=== PATIENT | female | born 1935 | race Caucasian/White ===

== ENCOUNTER 2021-04-08 15:29 | Inpatient (IN) ==
[2021-04-08] MEDS ORDERED: NITROGLYCERIN SL 0.4 MG TABLET SL PRN (16:22)
[2021-04-08] MEDS ORDERED: ASPIRIN 325 MG TABLET PO STA (16:22)
[2021-04-08 16:57] LABS: Basophils # 0.1 10*3/uL (0.0-0.2); Basophils % 0.9 % (0.0-0.8); Eosinophils # 0.2 10*3/uL (0.0-0.87); Eosinophils % 3.1 % (0.00-10.9); Hematocrit 41.1 VOL% (35.7-47.0); Hemoglobin 13.5 GM/DL (12.0-16.0); Immature Granulocytes % 0.2 %; Immature Granulocytes Absolute 0.01 #; Lymphocytes # 1.4 10*3/uL (1.4-4.0); Mean Corpuscular HGB Conc 32.8 GM/DL (32-36); Mean Corpuscular Volume 96.7 FL (87-102); Mean Platelet Volume 9.8 FL (9.6-12.0); Monocytes % 11.3 % (1.7-12.7); Neutrophils % 62.5 % (38.7-73.9); Platelet Count 231 T/CUMM (130-400); Red Blood Count 4.25 MC/CUMM (3.8-5.5); Red Cell Distribution Width 13.9 % (9.3-17.3); White Blood Count 6.5 T/CUMM (4-12)
[2021-04-08 17:18] LABS: Alanine Aminotransferase 31 U/L (13-56); Albumin 3.3 G/DL (3.4-5.0); Alkaline Phosphatase 55 U/L (45-117); Aspartate Amino Transferase 27 U/L (0-37); Bilirubin,Total < 0.39 MG/DL (0.20-1.00); Blood Urea Nitrogen 21 MG/DL (7-18); Calcium 8.6 MG/DL (8.5-10.1); Carbon Dioxide 29 MMOL/L (21-32); Estimated Glom Filtration Rate 42 ML/MIN; Glucose 111 MG/DL (74-106); Osmolality,Calculated 284.3 MOS/KG (273-304); Potassium 4.2 MMOL/L (3.5-5.1); Sodium 141 MMOL/L (136-145); Total Protein 6.4 G/DL (6.4-8.2)
[2021-04-08] MEDS ORDERED: ACETAMINOPHEN 325 MG TABLET PO PRN (19:02)
[2021-04-08] MEDS ORDERED: GLUCAGON 1 MG VIAL IM PRN (19:02)
[2021-04-08] MEDS ORDERED: ONDANSETRON 4 MG/2 ML VIAL IV PRN (19:02)
[2021-04-08] MEDS ORDERED: hydrALAZINE 20 MG/1 ML VIAL IV PRN (19:02)
[2021-04-08] MEDS ORDERED: DOCUSATE SODIUM 100 MG CAPSULE PO PRN (19:02)
[2021-04-08] MEDS ORDERED: DEXTROSE 50% 25 GM/50 ML VIAL IV PRN (19:02)
[2021-04-08] MEDS ORDERED: ENOXAPARIN 40 MG/0.4 ML SYRINGE SUBCUT SCH (19:30)
[2021-04-08 19:35] LABS: Thyroid Stimulating Hormone 2.44 uIU/ml (0.358-3.74)
[2021-04-08] MEDS ORDERED: lisinopriL 10 MG TABLET PO SCH (21:00)
[2021-04-08] MEDS: SODIUM CHLORIDE 0.9% 1,000 ML IV SCH (21:21)
[2021-04-08] MEDS: CALCIUM (CARBONATE)/VITAMIN D 600 MG-400 UNIT TABLET PO SCH (21:21)
[2021-04-08] MEDS: GABAPENTIN 300 MG CAPSULE PO SCH (21:21)
[2021-04-08] MEDS: OMEGA DHA EPA FISH OIL PO SCH (21:22)
[2021-04-08] MEDS: [UNRECOGNIZED DRUG - OTHER] PO SCH (21:22)
[2021-04-08] MEDS: PROPAFENONE 225 MG PO SCH (21:23)
[2021-04-08] MEDS: [UNRECOGNIZED DRUG - OTHER] PO SCH (21:23)
[2021-04-09 05:50] LABS: Basophils # 0.1 10*3/uL (0.0-0.2); Basophils % 1.2 % (0.0-0.8); Eosinophils # 0.3 10*3/uL (0.0-0.87); Eosinophils % 4.6 % (0.00-10.9); Hematocrit 39.1 VOL% (35.7-47.0); Hemoglobin 13.2 GM/DL (12.0-16.0); Immature Granulocytes % 0.2 %; Immature Granulocytes Absolute 0.01 #; Lymphocytes # 1.8 10*3/uL (1.4-4.0); Lymphocytes % 32.3 % (21.3-54.2); Mean Corpuscular HGB Conc 33.8 GM/DL (32-36); Mean Corpuscular Volume 95.8 FL (87-102); Mean Platelet Volume 9.9 FL (9.6-12.0); Monocytes % 10.8 % (1.7-12.7); Neutrophils % 50.9 % (38.7-73.9); Platelet Count 207 T/CUMM (130-400); Red Blood Count 4.08 MC/CUMM (3.8-5.5); Red Cell Distribution Width 13.6 % (9.3-17.3); White Blood Count 5.7 T/CUMM (4-12)
[2021-04-09] MEDS: LEVOTHYROXINE 50 MCG TABLET PO SCH (05:58)
[2021-04-09 06:16] LABS: Bilirubin,Urine Negative (Negative); Blood, Urine Negative (Negative); Glucose,Urine (UA) Negative (Negative); Ketones,Urine Negative (Negative); Mucus,Urine Occasional /LPF (Occasional); Nitrite,Urine Negative (Negative); Protein,Urine Negative; RBC,Urine 1 /HPF (0-4); Squamous Epithelial Cell,Urine Occasional /HPF (0-10); Urine Appearance CLEAR (Clear); Urine Color Yellow (Yellow); Urine Urobilinogen < 2.0 EU/DL (0.2-1.0)
[2021-04-09 06:41] LABS: Calcium 8.6 MG/DL (8.5-10.1); Potassium 3.6 MMOL/L (3.5-5.1); Risk Ratio 2.03; Total Protein 5.9 G/DL (6.4-8.2)
[2021-04-09] MEDS ORDERED: MAGNESIUM SULF RIDER 2 GM/50 ML PREMIX IV PRN (07:54)
[2021-04-09] MEDS ORDERED: diphenhydrAMINE CAP 25 MG CAPSULE PO ONE (07:54)
[2021-04-09] MEDS ORDERED: DIAZEPAM 5 MG TABLET PO ONE (07:54)
[2021-04-09] MEDS ORDERED: POTASSIUM CHLORIDE RIDER 10 MEQ/100 ML PREMIX IV PRN (07:54)
[2021-04-09] MEDS ORDERED: lisinopriL 20 MG TABLET PO SCH (09:00)
[2021-04-09] MEDS: ASCORBIC ACID 500 MG TABLET PO SCH (09:03)
[2021-04-09] MEDS: GABAPENTIN 300 MG CAPSULE PO SCH ×2 (09:03→21:46)
[2021-04-09] MEDS: PANTOPRAZOLE 40 MG TABLET PO SCH (09:03)
[2021-04-09] MEDS: MULTIVITAMIN (BEROCCA) TABLET PO SCH (09:03)
[2021-04-09] MEDS: CALCIUM (CARBONATE)/VITAMIN D 600 MG-400 UNIT TABLET PO SCH ×2 (09:03→21:47)
[2021-04-09] MEDS: ASPIRIN EC 81 MG TABLET PO SCH (09:03)
[2021-04-09] MEDS: MAGNESIUM OXIDE 400 MG TABLET PO SCH ×2 (09:03→17:40)
[2021-04-09] MEDS: LETROZOLE 2.5 MG TABLET PO SCH (09:04)
[2021-04-09] MEDS: PROPAFENONE 225 MG PO SCH ×3 (09:58→21:48)
[2021-04-09] MEDS: SODIUM CHLORIDE 0.9% 1,000 ML IV SCH (09:58)
[2021-04-09] MEDS: [UNRECOGNIZED DRUG - OTHER] PO SCH ×3 (09:58→21:48)
[2021-04-09] MEDS: [UNRECOGNIZED DRUG - OTHER] PO SCH ×2 (09:58→17:45)
[2021-04-09] MEDS: OMEGA DHA EPA FISH OIL PO SCH ×2 (09:58→17:45)
[2021-04-09] MEDS ORDERED: LIDOCAINE 1%/EPI INJ 20 ML VIAL ONE (14:43)
[2021-04-09] MEDS ORDERED: HEPARIN/NACL 0.9% 2 UNITS/ML 2,000 UNIT/1,000 ML BAG IV ONE (14:43)
[2021-04-09] MEDS ORDERED: MIDAZOLAM 2 MG/2 ML VIAL ONE (15:04)
[2021-04-09] MEDS ORDERED: fentaNYL 100 MCG/2 ML VIAL ONE (15:04)
[2021-04-09] MEDS: ATORVASTATIN 80 MG TABLET PO SCH (17:40)
[2021-04-09] MEDS: METOPROLOL SUCCINATE XL 25 MG TABLET PO SCH (17:41)
[2021-04-09] MEDS ORDERED: MONTELUKAST 10 MG TABLET PO SCH (19:00)
[2021-04-09] MEDS: MONTELUKAST 10 MG TABLET PO SCH (21:47)
[2021-04-10] MEDS: OMEGA DHA EPA FISH OIL PO SCH ×4 (03:16→23:54)
[2021-04-10] MEDS: SODIUM CHLORIDE 0.9% 1,000 ML IV SCH ×3 (03:16→23:53)
[2021-04-10] MEDS: [UNRECOGNIZED DRUG - OTHER] PO SCH ×4 (03:16→23:54)
[2021-04-10 05:27] LABS: Basophils # 0.1 10*3/uL (0.0-0.2); Basophils % 0.9 % (0.0-0.8); Eosinophils # 0.2 10*3/uL (0.0-0.87); Eosinophils % 3.7 % (0.00-10.9); Hematocrit 39.3 VOL% (35.7-47.0); Hemoglobin 12.9 GM/DL (12.0-16.0); Immature Granulocytes % 0.3 %; Immature Granulocytes Absolute 0.02 #; Lymphocytes # 1.4 10*3/uL (1.4-4.0); Lymphocytes % 22.1 % (21.3-54.2); Mean Corpuscular HGB Conc 32.8 GM/DL (32-36); Mean Corpuscular Volume 97.8 FL (87-102); Mean Platelet Volume 10.1 FL (9.6-12.0); Monocytes % 12.8 % (1.7-12.7); Neutrophils % 60.2 % (38.7-73.9); Platelet Count 187 T/CUMM (130-400); Red Blood Count 4.02 MC/CUMM (3.8-5.5); Red Cell Distribution Width 13.5 % (9.3-17.3); White Blood Count 6.5 T/CUMM (4-12)
[2021-04-10 06:08] LABS: Potassium 3.7 MMOL/L (3.5-5.1)
[2021-04-10] MEDS: LEVOTHYROXINE 50 MCG TABLET PO SCH (06:10)
[2021-04-10 06:11] LABS: Calcium 8.3 MG/DL (8.5-10.1)
[2021-04-10 06:12] LABS: Osmolality,Calculated 278.4 MOS/KG (273-304)
[2021-04-10] MEDS: MULTIVITAMIN (BEROCCA) TABLET PO SCH (08:58)
[2021-04-10] MEDS: LETROZOLE 2.5 MG TABLET PO SCH (08:58)
[2021-04-10] MEDS: MAGNESIUM OXIDE 400 MG TABLET PO SCH ×2 (08:58→17:02)
[2021-04-10] MEDS: ASPIRIN EC 81 MG TABLET PO SCH (08:58)
[2021-04-10] MEDS: CALCIUM (CARBONATE)/VITAMIN D 600 MG-400 UNIT TABLET PO SCH ×2 (08:58→23:50)
[2021-04-10] MEDS: ASCORBIC ACID 500 MG TABLET PO SCH (08:59)
[2021-04-10] MEDS: GABAPENTIN 300 MG CAPSULE PO SCH ×2 (08:59→23:49)
[2021-04-10] MEDS: PANTOPRAZOLE 40 MG TABLET PO SCH (08:59)
[2021-04-10] MEDS: [UNRECOGNIZED DRUG - OTHER] PO SCH ×3 (09:00→23:50)
[2021-04-10] MEDS: PROPAFENONE 225 MG PO SCH ×3 (09:00→23:50)
[2021-04-10] MEDS: CLOPIDOGREL 75 MG TABLET PO SCH (12:45)
[2021-04-10] MEDS: ATORVASTATIN 80 MG TABLET PO SCH (17:02)
[2021-04-10] MEDS: METOPROLOL SUCCINATE XL 25 MG TABLET PO SCH (17:02)
[2021-04-10] MEDS: APIXABAN 2.5 MG TABLET PO SCH (23:49)
[2021-04-10] MEDS: MONTELUKAST 10 MG TABLET PO SCH (23:49)
[2021-04-11 05:20] LABS: Basophils % 0.7 % (0.0-0.8); Eosinophils # 0.2 10*3/uL (0.0-0.87); Eosinophils % 4.1 % (0.00-10.9); Hematocrit 38.6 VOL% (35.7-47.0); Hemoglobin 12.7 GM/DL (12.0-16.0); Immature Granulocytes % 0.5 %; Immature Granulocytes Absolute 0.03 #; Lymphocytes # 1.7 10*3/uL (1.4-4.0); Lymphocytes % 28.8 % (21.3-54.2); Mean Corpuscular HGB Conc 32.9 GM/DL (32-36); Mean Corpuscular Volume 95.8 FL (87-102); Mean Platelet Volume 9.5 FL (9.6-12.0); Monocytes % 11.3 % (1.7-12.7); Neutrophils % 54.6 % (38.7-73.9); Platelet Count 200 T/CUMM (130-400); Red Blood Count 4.03 MC/CUMM (3.8-5.5); Red Cell Distribution Width 13.3 % (9.3-17.3); White Blood Count 5.9 T/CUMM (4-12)
[2021-04-11 05:48] LABS: Calcium 8.3 MG/DL (8.5-10.1); Osmolality,Calculated 283.1 MOS/KG (273-304); Potassium 3.3 MMOL/L (3.5-5.1)
[2021-04-11] MEDS: LEVOTHYROXINE 50 MCG TABLET PO SCH (06:07)
[2021-04-11 07:57] VITALS: BP 130/64
[2021-04-11] MEDS ORDERED: POTASSIUM CHLORIDE 20 MEQ TABLET PO ONE (08:02)
[2021-04-11] MEDS: LETROZOLE 2.5 MG TABLET PO SCH (08:31)
[2021-04-11] MEDS: GABAPENTIN 300 MG CAPSULE PO SCH (08:31)
[2021-04-11] MEDS: MAGNESIUM OXIDE 400 MG TABLET PO SCH (08:31)
[2021-04-11] MEDS: CLOPIDOGREL 75 MG TABLET PO SCH (08:32)
[2021-04-11] MEDS: PANTOPRAZOLE 40 MG TABLET PO SCH (08:32)
[2021-04-11] MEDS: APIXABAN 2.5 MG TABLET PO SCH (08:32)
[2021-04-11] MEDS: ASCORBIC ACID 500 MG TABLET PO SCH (08:32)
[2021-04-11] MEDS: CALCIUM (CARBONATE)/VITAMIN D 600 MG-400 UNIT TABLET PO SCH (08:32)
[2021-04-11] MEDS: MULTIVITAMIN (BEROCCA) TABLET PO SCH (08:32)
[2021-04-11] MEDS: PROPAFENONE 225 MG PO SCH (08:33)
[2021-04-11] MEDS: [UNRECOGNIZED DRUG - OTHER] PO SCH (08:33)
[2021-04-11] MEDS: OMEGA DHA EPA FISH OIL PO SCH (08:34)
[2021-04-11] MEDS: [UNRECOGNIZED DRUG - OTHER] PO SCH (08:34)
[2021-04-12] MEDS ORDERED: POTASSIUM CHLORIDE 20 MEQ TABLET PO SCH (09:00)
== END 2021-04-11 12:36 | disposition home or self-care (01) | DRG 281 ==
LOC: N.EDINP 15:29 → N.ED 15:29 → N.EDINP 20:42 → N.TELEN 20:55 → SUATTDRO 04-09 14:56
PROVIDERS: ADMIT Internal Medicine; ATTEND Emergency Medicine
PROC: CLCCHCL (ICD-10-PCS; 2021-04-09 15:15)

== ENCOUNTER 2021-08-10 14:29 | Inpatient (IN) ==
[2021-08-10 17:34] LABS: Basophils % 0.5 % (0.0-0.8); Eosinophils # 0.1 10*3/uL (0.0-0.87); Eosinophils % 1.4 % (0.00-10.9); Hematocrit 39.3 VOL% (35.7-47.0); Hemoglobin 13.1 GM/DL (12.0-16.0); Immature Granulocytes % 0.3 %; Immature Granulocytes Absolute 0.02 #; Lymphocytes # 1.7 10*3/uL (1.4-4.0); Lymphocytes % 21.8 % (21.3-54.2); Mean Corpuscular HGB Conc 33.3 GM/DL (32-36); Mean Corpuscular Volume 93.8 FL (87-102); Mean Platelet Volume 9.9 FL (9.6-12.0); Platelet Count 195 T/CUMM (130-400); Red Blood Count 4.19 MC/CUMM (3.8-5.5); Red Cell Distribution Width 13.7 % (9.3-17.3); White Blood Count 7.6 T/CUMM (4-12)
[2021-08-10 18:06] LABS: Albumin 3.3 G/DL (3.4-5.0); Bilirubin,Total 0.4 MG/DL (0.20-1.00); Calcium 8.8 MG/DL (8.5-10.1); Osmolality,Calculated 278.8 MOS/KG (273-304); Potassium 4.3 MMOL/L (3.5-5.1); Total Protein 6.3 G/DL (6.4-8.2)
[2021-08-10] MEDS ORDERED: DEXTROSE 50% 25 GM/50 ML SYRINGE IV PRN (19:37)
[2021-08-10] MEDS ORDERED: GLUCAGON 1 MG VIAL IM PRN (19:37)
[2021-08-10] MEDS ORDERED: MORPHINE 2 MG/1 ML SYRINGE IV PRN (19:37)
[2021-08-10] MEDS ORDERED: HEPARIN DRIP 25,000 UNITS/500 ML PREMIX IV SCH (20:00)
[2021-08-10 20:46] LABS: PT Patient Result 11.1 SECS (10.5-12.0); Partial Thromboplastin Time 25.2 SECS (23.8-32.1)
[2021-08-10] MEDS: METOPROLOL TARTRATE 25 MG TABLET PO SCH (21:05)
[2021-08-10] MEDS: [UNRECOGNIZED DRUG - OTHER] PO SCH (21:54)
[2021-08-10] MEDS: PROPAFENONE 225 MG PO SCH (21:54)
[2021-08-11 04:28] LABS: Basophils # 0.1 10*3/uL (0.0-0.2); Basophils % 0.7 % (0.0-0.8); Eosinophils # 0.2 10*3/uL (0.0-0.87); Eosinophils % 2.7 % (0.00-10.9); Hematocrit 38.8 VOL% (35.7-47.0); Hemoglobin 12.7 GM/DL (12.0-16.0); Immature Granulocytes % 0.1 %; Immature Granulocytes Absolute 0.01 #; Lymphocytes # 2.3 10*3/uL (1.4-4.0); Lymphocytes % 34.1 % (21.3-54.2); Mean Corpuscular HGB Conc 32.7 GM/DL (32-36); Mean Corpuscular Volume 94.6 FL (87-102); Mean Platelet Volume 10.1 FL (9.6-12.0); Monocytes % 11.4 % (1.7-12.7); Platelet Count 172 T/CUMM (130-400); Red Cell Distribution Width 13.7 % (9.3-17.3); White Blood Count 6.8 T/CUMM (4-12)
[2021-08-11 04:39] LABS: PT Patient Result 11.4 SECS (10.5-12.0); Partial Thromboplastin Time 62.9 SECS (23.8-32.1)
[2021-08-11 05:04] LABS: Calcium 8.8 MG/DL (8.5-10.1); Osmolality,Calculated 274.8 MOS/KG (273-304); Potassium 3.6 MMOL/L (3.5-5.1)
[2021-08-11] MEDS: [UNRECOGNIZED DRUG - OTHER] PO SCH ×2 (09:53→17:43)
[2021-08-11] MEDS: PROPAFENONE 225 MG PO SCH ×2 (09:53→17:43)
[2021-08-11] MEDS ORDERED: NITROGLYCERIN SL 0.4 MG TABLET SL PRN (10:29)
[2021-08-11] MEDS: ATORVASTATIN 80 MG TABLET PO SCH (10:49)
[2021-08-11] MEDS: METOPROLOL TARTRATE 25 MG TABLET PO SCH ×2 (10:49→21:07)
[2021-08-11] MEDS: CLOPIDOGREL 75 MG TABLET PO SCH (10:50)
[2021-08-11] MEDS: lisinopriL 20 MG TABLET PO SCH (10:50)
[2021-08-11] MEDS: PANTOPRAZOLE 40 MG TABLET PO SCH (10:54)
[2021-08-11] MEDS: ISOSORBIDE MONONITRATE 30 MG TABLET PO SCH (10:54)
[2021-08-11] MEDS: CLINDAMYCIN 300 MG CAPSULE PO SCH ×3 (12:42→23:12)
[2021-08-11] MEDS ORDERED: METOPROLOL SUCCINATE XL 25 MG TABLET PO SCH (17:00)
[2021-08-11] MEDS: GABAPENTIN 300 MG CAPSULE PO SCH ×2 (17:43→21:07)
[2021-08-11] MEDS: MAGNESIUM OXIDE 400 MG TABLET PO SCH (17:43)
[2021-08-11] MEDS: OMEGA 3 ACID ETHYL ESTERS 1 GM CAPSULE PO SCH ×2 (17:43→21:07)
[2021-08-11] MEDS ORDERED: PRAVASTATIN 20 MG TABLET PO SCH (21:00)
[2021-08-11] MEDS ORDERED: MONTELUKAST 10 MG TABLET PO SCH (21:00)
[2021-08-11] MEDS ORDERED: lisinopriL 10 MG TABLET PO SCH (21:00)
[2021-08-11] MEDS: CALCIUM (CARBONATE)/VITAMIN D 600 MG-400 UNIT TABLET PO SCH (21:06)
[2021-08-11] MEDS: APIXABAN 2.5 MG TABLET PO SCH (21:07)
[2021-08-12] MEDS: [UNRECOGNIZED DRUG - OTHER] PO SCH ×3 (02:53→18:00)
[2021-08-12] MEDS: PROPAFENONE 225 MG PO SCH ×3 (02:53→18:00)
[2021-08-12 04:00] LABS: Basophils # 0.1 10*3/uL (0.0-0.2); Basophils % 0.8 % (0.0-0.8); Eosinophils # 0.3 10*3/uL (0.0-0.87); Eosinophils % 3.9 % (0.00-10.9); Hematocrit 40.9 VOL% (35.7-47.0); Hemoglobin 13.3 GM/DL (12.0-16.0); Immature Granulocytes % 0.5 %; Immature Granulocytes Absolute 0.03 #; Lymphocytes # 1.4 10*3/uL (1.4-4.0); Lymphocytes % 21.6 % (21.3-54.2); Mean Corpuscular HGB Conc 32.5 GM/DL (32-36); Mean Corpuscular Volume 94.7 FL (87-102); Mean Platelet Volume 9.6 FL (9.6-12.0); Monocytes % 12.8 % (1.7-12.7); Neutrophils % 60.4 % (38.7-73.9); Platelet Count 182 T/CUMM (130-400); Red Blood Count 4.32 MC/CUMM (3.8-5.5); Red Cell Distribution Width 13.4 % (9.3-17.3); White Blood Count 6.3 T/CUMM (4-12)
[2021-08-12] MEDS ORDERED: ACETAMINOPHEN 325 MG TABLET PO PRN (04:20)
[2021-08-12 04:27] LABS: Osmolality,Calculated 271.8 MOS/KG (273-304); Potassium 3.5 MMOL/L (3.5-5.1)
[2021-08-12] MEDS: CLINDAMYCIN 300 MG CAPSULE PO SCH ×3 (06:06→18:00)
[2021-08-12] MEDS ORDERED: LEVOTHYROXINE 50 MCG TABLET PO SCH (07:00)
[2021-08-12] MEDS ORDERED: MULTIVITAMIN (BEROCCA) TABLET PO SCH (09:00)
[2021-08-12] MEDS ORDERED: POTASSIUM CHLORIDE 10 MEQ TABLET PO SCH (09:00)
[2021-08-12] MEDS ORDERED: METOPROLOL TARTRATE 25 MG TABLET PO SCH (09:00)
[2021-08-12] MEDS ORDERED: ASCORBIC ACID 500 MG TABLET PO SCH (09:00)
[2021-08-12] MEDS ORDERED: PANTOPRAZOLE 40 MG TABLET PO SCH (09:00)
[2021-08-12] MEDS ORDERED: LETROZOLE 2.5 MG TABLET PO SCH (09:00)
[2021-08-12] MEDS: CLOPIDOGREL 75 MG TABLET PO SCH (11:19)
[2021-08-12] MEDS: ISOSORBIDE MONONITRATE 30 MG TABLET PO SCH (11:20)
[2021-08-12] MEDS: APIXABAN 2.5 MG TABLET PO SCH (11:20)
[2021-08-12] MEDS: MAGNESIUM OXIDE 400 MG TABLET PO SCH ×2 (11:20→18:00)
[2021-08-12] MEDS: ATORVASTATIN 80 MG TABLET PO SCH (11:20)
[2021-08-12] MEDS: GABAPENTIN 300 MG CAPSULE PO SCH ×2 (11:20→18:00)
[2021-08-12] MEDS: CALCIUM (CARBONATE)/VITAMIN D 600 MG-400 UNIT TABLET PO SCH (11:20)
[2021-08-12] MEDS: lisinopriL 20 MG TABLET PO SCH (11:21)
[2021-08-12] MEDS: OMEGA 3 ACID ETHYL ESTERS 1 GM CAPSULE PO SCH ×2 (11:21→17:59)
[2021-08-12] MEDS: PANTOPRAZOLE 40 MG TABLET PO SCH (11:21)
[2021-08-12 16:11] VITALS: BP 107/57
== END 2021-08-12 19:15 | disposition home health service (06) | DRG 281 ==
LOC: N.ED 14:29 → N.EDINP 19:37 → N.TELEN 20:46
PROVIDERS: ADMIT Hospitalist; ATTEND Hospitalist

== ENCOUNTER 2022-09-01 14:42 | Inpatient (IN) ==
[2022-09-01] MEDS ORDERED: ONDANSETRON 4 MG/2 ML VIAL IV PRN (17:05)
[2022-09-01] MEDS ORDERED: ACETAMINOPHEN 325 MG TABLET PO PRN (17:05)
[2022-09-01] MEDS ORDERED: APIXABAN 2.5 MG TABLET PO SCH (21:00)
[2022-09-01] MEDS ORDERED: PROPAFENONE 150 MG TABLET PO SCH (21:00)
[2022-09-01] MEDS ORDERED: METOPROLOL TARTRATE 25 MG TABLET PO SCH (21:00)
[2022-09-01] MEDS: SIMVASTATIN 10 MG TABLET PO SCH (21:39)
[2022-09-01] MEDS: MONTELUKAST 10 MG TABLET PO SCH (21:39)
[2022-09-01] MEDS: GABAPENTIN 300 MG CAPSULE PO SCH (21:39)
[2022-09-01] MEDS: OMEGA 3 ACID ETHYL ESTERS 1 GM CAPSULE PO SCH (21:39)
[2022-09-01] MEDS: ASCORBIC ACID 500 MG TABLET PO SCH (21:39)
[2022-09-01] MEDS: CALCIUM (CARBONATE)/VITAMIN D 600 MG-400 UNIT TABLET PO SCH (21:40)
[2022-09-02 05:20] LABS: Basophils % 0.7 % (0.0-0.8); Eosinophils # 0.1 10*3/uL (0.0-0.87); Eosinophils % 2.2 % (0.00-10.9); Hematocrit 41.7 VOL% (35.7-47.0); Immature Granulocytes % 0.2 %; Immature Granulocytes Absolute 0.01 #; Lymphocytes # 1.8 10*3/uL (1.4-4.0); Lymphocytes % 32.7 % (21.3-54.2); Mean Corpuscular HGB Conc 33.6 GM/DL (32-36); Mean Corpuscular Volume 96.8 FL (87-102); Mean Platelet Volume 9.7 FL (9.6-12.0); Monocytes # 0.6 10*3/uL (0.11-0.8); Monocytes % 11.2 % (1.7-12.7); Platelet Count 205 T/CUMM (130-400); Red Blood Count 4.31 MC/CUMM (3.8-5.5); Red Cell Distribution Width 14.4 % (9.3-17.3); White Blood Count 5.4 T/CUMM (4-12)
[2022-09-02 05:52] LABS: Albumin 3.1 G/DL (3.4-5.0); Bilirubin,Total 0.4 MG/DL (0.20-1.00); Calcium 8.4 MG/DL (8.5-10.1); Osmolality,Calculated 280.4 MOS/KG (273-304); Potassium 4.1 MMOL/L (3.5-5.1); Thyroid Stimulating Hormone 1.55 uIU/ml (0.358-3.74)
[2022-09-02] MEDS: LEVOTHYROXINE 50 MCG TABLET PO SCH (06:09)
[2022-09-02] MEDS: POTASSIUM CHLORIDE 10 MEQ TABLET PO SCH (08:31)
[2022-09-02] MEDS: PANTOPRAZOLE 40 MG TABLET PO SCH (08:32)
[2022-09-02] MEDS: CLOPIDOGREL 75 MG TABLET PO SCH (08:32)
[2022-09-02] MEDS: MAGNESIUM OXIDE 400 MG TABLET PO SCH ×2 (08:33→16:08)
[2022-09-02] MEDS: LETROZOLE 2.5 MG TABLET PO SCH (08:33)
[2022-09-02] MEDS ORDERED: METOPROLOL TARTRATE 25 MG TABLET PO SCH (09:00)
[2022-09-02] MEDS: MULTIVITAMIN (BEROCCA) TABLET PO SCH (10:03)
[2022-09-02] MEDS: ASCORBIC ACID 500 MG TABLET PO SCH ×2 (10:03→21:27)
[2022-09-02] MEDS: OMEGA 3 ACID ETHYL ESTERS 1 GM CAPSULE PO SCH ×3 (10:03→21:27)
[2022-09-02] MEDS: GABAPENTIN 300 MG CAPSULE PO SCH ×3 (10:03→21:27)
[2022-09-02] MEDS: CALCIUM (CARBONATE)/VITAMIN D 600 MG-400 UNIT TABLET PO SCH ×2 (10:03→21:28)
[2022-09-02] MEDS: SODIUM CHLORIDE 0.9% 1,000 ML IV SCH ×2 (12:36→21:28)
[2022-09-02] MEDS ORDERED: SODIUM CHLORIDE 0.45% 1,000 ML IV SCH (13:00)
[2022-09-02] MEDS: MONTELUKAST 10 MG TABLET PO SCH (21:27)
[2022-09-02] MEDS: SIMVASTATIN 10 MG TABLET PO SCH (21:27)
[2022-09-03] MEDS ORDERED: NITROGLYCERIN SL 0.4 MG TABLET SL ONE (03:32)
[2022-09-03 04:42] LABS: Arterial Base Excess iSTAT 0 MMOL/L (-2.5-2.5); Arterial Bicarbonate iSTAT 24.7 MMOL/L (20-26); Arterial O2 Saturation iSTAT 97 % (95-100); Arterial PCO2 iSTAT 39 MM HG (35-48); Arterial PO2 iSTAT 86 MM HG (80-95); Arterial Total CO2 iSTAT 26 MMO/L (23-27); Arterial pH iSTAT 7.414 (7.35-7.45)
[2022-09-03 05:06] LABS: Basophils % 0.6 % (0.0-0.8); Eosinophils # 0.1 10*3/uL (0.0-0.87); Eosinophils % 1.6 % (0.00-10.9); Hematocrit 42.6 VOL% (35.7-47.0); Hemoglobin 14.4 GM/DL (12.0-16.0); Immature Granulocytes % 0.3 %; Immature Granulocytes Absolute 0.02 #; Lymphocytes # 1.4 10*3/uL (1.4-4.0); Lymphocytes % 19.9 % (21.3-54.2); Mean Corpuscular HGB Conc 33.8 GM/DL (32-36); Mean Corpuscular Volume 95.9 FL (87-102); Mean Platelet Volume 9.5 FL (9.6-12.0); Monocytes # 0.7 10*3/uL (0.11-0.8); Monocytes % 9.6 % (1.7-12.7); Platelet Count 190 T/CUMM (130-400); Red Blood Count 4.44 MC/CUMM (3.8-5.5); White Blood Count 7.1 T/CUMM (4-12)
[2022-09-03] MEDS ORDERED: ASPIRIN 300 MG SUPP RECTAL ONE (05:15)
[2022-09-03 05:32] LABS: Calcium 8.7 MG/DL (8.5-10.1); Potassium 3.9 MMOL/L (3.5-5.1)
[2022-09-03 05:35] LABS: Lactic Acid 0.8 MMOL/L (0.4-2.0)
[2022-09-03 06:03] LABS: PT Patient Result 11.3 SECS (10.1-12.1); Partial Thromboplastin Time 28.6 SECS (23.7-32.9)
[2022-09-03] MEDS: LEVOTHYROXINE 50 MCG TABLET PO SCH (06:30)
[2022-09-03] MEDS: MULTIVITAMIN (BEROCCA) TABLET PO SCH (09:49)
[2022-09-03] MEDS: POTASSIUM CHLORIDE 10 MEQ TABLET PO SCH (09:49)
[2022-09-03] MEDS: ASCORBIC ACID 500 MG TABLET PO SCH ×2 (09:49→20:28)
[2022-09-03] MEDS: PANTOPRAZOLE 40 MG TABLET PO SCH (09:49)
[2022-09-03] MEDS: LETROZOLE 2.5 MG TABLET PO SCH (09:50)
[2022-09-03] MEDS: GABAPENTIN 300 MG CAPSULE PO SCH ×3 (09:50→20:27)
[2022-09-03] MEDS: OMEGA 3 ACID ETHYL ESTERS 1 GM CAPSULE PO SCH ×3 (09:52→20:28)
[2022-09-03] MEDS: CLOPIDOGREL 75 MG TABLET PO SCH (09:52)
[2022-09-03] MEDS: MAGNESIUM OXIDE 400 MG TABLET PO SCH ×3 (09:52→16:05)
[2022-09-03] MEDS: CALCIUM (CARBONATE)/VITAMIN D 600 MG-400 UNIT TABLET PO SCH ×2 (09:56→20:28)
[2022-09-03] MEDS: SODIUM CHLORIDE 0.9% 1,000 ML IV SCH (19:49)
[2022-09-03] MEDS: MONTELUKAST 10 MG TABLET PO SCH (20:27)
[2022-09-03] MEDS: SIMVASTATIN 10 MG TABLET PO SCH (20:28)
[2022-09-04] MEDS: SODIUM CHLORIDE 0.9% 1,000 ML IV SCH ×2 (00:45→03:19)
[2022-09-04 05:31] LABS: Calcium 8.6 MG/DL (8.5-10.1); Osmolality,Calculated 274.5 MOS/KG (273-304); Potassium 3.9 MMOL/L (3.5-5.1)
[2022-09-04 06:01] LABS: Basophils # 0.1 10*3/uL (0.0-0.2); Basophils % 0.8 % (0.0-0.8); Eosinophils # 0.1 10*3/uL (0.0-0.87); Eosinophils % 1.9 % (0.00-10.9); Hematocrit 42.6 VOL% (35.7-47.0); Hemoglobin 14.6 GM/DL (12.0-16.0); Immature Granulocytes % 0.2 %; Immature Granulocytes Absolute 0.01 #; Lymphocytes # 1.6 10*3/uL (1.4-4.0); Lymphocytes % 25.7 % (21.3-54.2); Mean Corpuscular HGB Conc 34.3 GM/DL (32-36); Mean Corpuscular Volume 95.3 FL (87-102); Mean Platelet Volume 9.6 FL (9.6-12.0); Monocytes # 0.7 10*3/uL (0.11-0.8); Monocytes % 10.8 % (1.7-12.7); Neutrophils % 60.6 % (38.7-73.9); Platelet Count 211 T/CUMM (130-400); Red Blood Count 4.47 MC/CUMM (3.8-5.5); White Blood Count 6.3 T/CUMM (4-12)
[2022-09-04] MEDS: LEVOTHYROXINE 50 MCG TABLET PO SCH (06:10)
[2022-09-04] MEDS: MULTIVITAMIN (BEROCCA) TABLET PO SCH (09:43)
[2022-09-04] MEDS: OMEGA 3 ACID ETHYL ESTERS 1 GM CAPSULE PO SCH ×3 (09:43→21:42)
[2022-09-04] MEDS: POTASSIUM CHLORIDE 10 MEQ TABLET PO SCH (09:43)
[2022-09-04] MEDS: MAGNESIUM OXIDE 400 MG TABLET PO SCH ×2 (09:44→16:26)
[2022-09-04] MEDS: ASCORBIC ACID 500 MG TABLET PO SCH ×2 (09:44→21:42)
[2022-09-04] MEDS: PANTOPRAZOLE 40 MG TABLET PO SCH (09:44)
[2022-09-04] MEDS: LETROZOLE 2.5 MG TABLET PO SCH (09:44)
[2022-09-04] MEDS: GABAPENTIN 300 MG CAPSULE PO SCH ×3 (09:44→21:42)
[2022-09-04] MEDS: CLOPIDOGREL 75 MG TABLET PO SCH (09:44)
[2022-09-04] MEDS: CALCIUM (CARBONATE)/VITAMIN D 600 MG-400 UNIT TABLET PO SCH ×2 (09:46→21:42)
[2022-09-04] MEDS: SIMVASTATIN 10 MG TABLET PO SCH (21:42)
[2022-09-04] MEDS: MONTELUKAST 10 MG TABLET PO SCH (21:42)
[2022-09-05] MEDS: LEVOTHYROXINE 50 MCG TABLET PO SCH (05:53)
[2022-09-05 05:54] LABS: Basophils # 0.1 10*3/uL (0.0-0.2); Basophils % 0.9 % (0.0-0.8); Eosinophils # 0.1 10*3/uL (0.0-0.87); Eosinophils % 2.4 % (0.00-10.9); Hematocrit 42.6 VOL% (35.7-47.0); Hemoglobin 14.4 GM/DL (12.0-16.0); Immature Granulocytes % 0.3 %; Immature Granulocytes Absolute 0.02 #; Lymphocytes # 1.6 10*3/uL (1.4-4.0); Lymphocytes % 26.4 % (21.3-54.2); Mean Corpuscular HGB Conc 33.8 GM/DL (32-36); Mean Corpuscular Volume 94.5 FL (87-102); Mean Platelet Volume 9.6 FL (9.6-12.0); Monocytes # 0.6 10*3/uL (0.11-0.8); Monocytes % 9.4 % (1.7-12.7); Neutrophils % 60.6 % (38.7-73.9); Platelet Count 227 T/CUMM (130-400); Red Blood Count 4.51 MC/CUMM (3.8-5.5); Red Cell Distribution Width 13.9 % (9.3-17.3); White Blood Count 5.9 T/CUMM (4-12)
[2022-09-05 06:14] LABS: Calcium 8.9 MG/DL (8.5-10.1); Potassium 3.8 MMOL/L (3.5-5.1)
[2022-09-05] MEDS: CALCIUM (CARBONATE)/VITAMIN D 600 MG-400 UNIT TABLET PO SCH ×2 (08:57→21:40)
[2022-09-05] MEDS: GABAPENTIN 300 MG CAPSULE PO SCH ×3 (08:57→21:40)
[2022-09-05] MEDS: MULTIVITAMIN (BEROCCA) TABLET PO SCH (08:58)
[2022-09-05] MEDS: POTASSIUM CHLORIDE 10 MEQ TABLET PO SCH (08:58)
[2022-09-05] MEDS: CLOPIDOGREL 75 MG TABLET PO SCH (08:58)
[2022-09-05] MEDS: LETROZOLE 2.5 MG TABLET PO SCH (08:58)
[2022-09-05] MEDS: ASCORBIC ACID 500 MG TABLET PO SCH ×2 (08:58→21:40)
[2022-09-05] MEDS: OMEGA 3 ACID ETHYL ESTERS 1 GM CAPSULE PO SCH ×3 (08:59→21:40)
[2022-09-05] MEDS: MAGNESIUM OXIDE 400 MG TABLET PO SCH ×2 (08:59→16:29)
[2022-09-05] MEDS: PANTOPRAZOLE 40 MG TABLET PO SCH (08:59)
[2022-09-05] MEDS: MONTELUKAST 10 MG TABLET PO SCH (21:40)
[2022-09-05] MEDS: SIMVASTATIN 10 MG TABLET PO SCH (21:40)
[2022-09-06] MEDS: LEVOTHYROXINE 50 MCG TABLET PO SCH (05:33)
[2022-09-06] MEDS: MULTIVITAMIN (BEROCCA) TABLET PO SCH (08:45)
[2022-09-06] MEDS: GABAPENTIN 300 MG CAPSULE PO SCH ×3 (08:45→21:18)
[2022-09-06] MEDS: POTASSIUM CHLORIDE 10 MEQ TABLET PO SCH (08:45)
[2022-09-06] MEDS: LETROZOLE 2.5 MG TABLET PO SCH (08:45)
[2022-09-06] MEDS: CALCIUM (CARBONATE)/VITAMIN D 600 MG-400 UNIT TABLET PO SCH ×2 (08:45→21:18)
[2022-09-06] MEDS: PANTOPRAZOLE 40 MG TABLET PO SCH (08:46)
[2022-09-06] MEDS: OMEGA 3 ACID ETHYL ESTERS 1 GM CAPSULE PO SCH ×3 (08:46→21:18)
[2022-09-06] MEDS: MAGNESIUM OXIDE 400 MG TABLET PO SCH ×2 (08:46→18:03)
[2022-09-06] MEDS: CLOPIDOGREL 75 MG TABLET PO SCH (08:46)
[2022-09-06] MEDS: ASCORBIC ACID 500 MG TABLET PO SCH ×2 (08:46→21:18)
[2022-09-06] MEDS: METOPROLOL TARTRATE 25 MG TABLET PO SCH ×2 (10:18→21:18)
[2022-09-06] MEDS: SODIUM CHLORIDE 0.9% 1,000 ML IV SCH (12:01)
[2022-09-06] MEDS: SIMVASTATIN 10 MG TABLET PO SCH (21:18)
[2022-09-06] MEDS: MONTELUKAST 10 MG TABLET PO SCH (21:18)
[2022-09-06] MEDS: PROPAFENONE 150 MG TABLET PO SCH (21:18)
[2022-09-07] MEDS: SODIUM CHLORIDE 0.9% 1,000 ML IV SCH (01:30)
[2022-09-07] MEDS: LEVOTHYROXINE 50 MCG TABLET PO SCH (07:53)
[2022-09-07] MEDS ORDERED: LEVOTHYROXINE 50 MCG TABLET PO SCH (08:00)
[2022-09-07] MEDS: MULTIVITAMIN (BEROCCA) TABLET PO SCH (08:51)
[2022-09-07] MEDS: POTASSIUM CHLORIDE 10 MEQ TABLET PO SCH (08:51)
[2022-09-07] MEDS: LETROZOLE 2.5 MG TABLET PO SCH (08:51)
[2022-09-07] MEDS: GABAPENTIN 300 MG CAPSULE PO SCH (08:51)
[2022-09-07] MEDS: PROPAFENONE 150 MG TABLET PO SCH (08:51)
[2022-09-07] MEDS: ASCORBIC ACID 500 MG TABLET PO SCH (08:52)
[2022-09-07] MEDS: MAGNESIUM OXIDE 400 MG TABLET PO SCH (08:52)
[2022-09-07] MEDS: PANTOPRAZOLE 40 MG TABLET PO SCH (08:52)
[2022-09-07] MEDS: CLOPIDOGREL 75 MG TABLET PO SCH (08:52)
[2022-09-07] MEDS: CALCIUM (CARBONATE)/VITAMIN D 600 MG-400 UNIT TABLET PO SCH (08:52)
[2022-09-07] MEDS: OMEGA 3 ACID ETHYL ESTERS 1 GM CAPSULE PO SCH (08:52)
[2022-09-07 11:47] VITALS: BP 110/78
== END 2022-09-07 13:50 | DRG 312 ==
LOC: EDUNIT# → N.ED 14:42 → N.EDINP 14:42 → N.TELES 18:54 → SUATTDRO 09-03 09:41
PROVIDERS: ADMIT Internal Medicine; ATTEND Internal Medicine

== ENCOUNTER 2022-09-25 23:09 | Inpatient (IN) ==
[2022-09-25] MEDS ORDERED: SODIUM CHLORIDE 0.9% 1,000 ML IV STA (23:29)
[2022-09-25] MEDS ORDERED: METOPROLOL TARTRATE 5 MG/5 ML VIAL IV STA (23:32)
[2022-09-25 23:43] LABS: Basophils # 0.1 10*3/uL (0.0-0.2); Basophils % 0.7 % (0.0-0.8); Eosinophils # 0.1 10*3/uL (0.0-0.87); Eosinophils % 1.3 % (0.00-10.9); Hematocrit 42.8 VOL% (35.7-47.0); Hemoglobin 14.1 GM/DL (12.0-16.0); Immature Granulocytes % 0.2 %; Immature Granulocytes Absolute 0.02 #; Lymphocytes # 0.9 10*3/uL (1.4-4.0); Lymphocytes % 10.8 % (21.3-54.2); Mean Corpuscular HGB Conc 32.9 GM/DL (32-36); Mean Corpuscular Volume 98.4 FL (87-102); Mean Platelet Volume 10.8 FL (9.6-12.0); Monocytes # 0.8 10*3/uL (0.11-0.8); Monocytes % 8.8 % (1.7-12.7); Neutrophils % 78.2 % (38.7-73.9); Platelet Count 186 T/CUMM (130-400); Red Blood Count 4.35 MC/CUMM (3.8-5.5); Red Cell Distribution Width 14.6 % (9.3-17.3); White Blood Count 8.67 T/CUMM (4-12)
[2022-09-25 23:55] LABS: INR 1.1; Partial Thromboplastin Time 27.3 SECS (23.7-32.9)
[2022-09-26 00:08] LABS: Albumin 3.8 G/DL (3.4-5.0); Calcium 9.6 MG/DL (8.5-10.1); Osmolality,Calculated 280.5 MOS/KG (273-304)
[2022-09-26] MEDS ORDERED: DILTIAZEM 50 MG/10 ML VIAL IV STA (00:10)
[2022-09-26 01:13] LABS: Mucus,Urine Occasional /LPF (Occasional)
[2022-09-26 01:14] LABS: Bilirubin,Urine Negative (Negative); Blood, Urine Negative (Negative); Glucose,Urine (UA) Negative (Negative); Ketones,Urine 15 mg/dL (Negative); Nitrite,Urine Negative (Negative); Protein,Urine Negative (Negative); Urine Appearance Clear (Clear); Urine Color Yellow (Yellow); Urine Urobilinogen 0.2 eU/dL (<2.0)
[2022-09-26] MEDS ORDERED: AZITHROMYCIN INJ 500 MG in SODIUM CHLORIDE 0.9% 250 ML IV STA (01:56)
[2022-09-26] MEDS ORDERED: cefTRIAXone 1,000 MG in SODIUM CHLORIDE 0.9% 100 ML IV STA (01:56)
[2022-09-26] MEDS: DILTIAZEM INJ 100 MG in SODIUM CHLORIDE 0.9% 100 ML IV SCH ×3 (02:23→20:28)
[2022-09-26] MEDS ORDERED: ONDANSETRON 4 MG/2 ML VIAL IV PRN (03:54)
[2022-09-26] MEDS ORDERED: hydrALAZINE 20 MG/1 ML VIAL IV PRN (03:54)
[2022-09-26] MEDS ORDERED: SIMETHICONE CHEW 125 MG TABLET PO PRN (03:54)
[2022-09-26] MEDS ORDERED: MAGNESIUM SULF RIDER 2 GM/50 ML PREMIX IV STA (04:03)
[2022-09-26 07:06] LABS: Basophils % 0.4 % (0.0-0.8); Eosinophils % 0.4 % (0.00-10.9); Hematocrit 35.7 VOL% (35.7-47.0); Immature Granulocytes % 0.3 %; Immature Granulocytes Absolute 0.02 #; Lymphocytes # 0.9 10*3/uL (1.4-4.0); Lymphocytes % 13.6 % (21.3-54.2); Mean Corpuscular HGB Conc 33.6 GM/DL (32-36); Mean Corpuscular Volume 97.3 FL (87-102); Mean Platelet Volume 10.8 FL (9.6-12.0); Monocytes # 0.6 10*3/uL (0.11-0.8); Monocytes % 9.4 % (1.7-12.7); Neutrophils % 75.9 % (38.7-73.9); Platelet Count 178 T/CUMM (130-400); Red Blood Count 3.67 MC/CUMM (3.8-5.5); Red Cell Distribution Width 14.6 % (9.3-17.3)
[2022-09-26] MEDS: LEVOTHYROXINE 50 MCG TABLET PO SCH (07:24)
[2022-09-26 07:29] LABS: Calcium 8.5 MG/DL (8.5-10.1); Potassium 3.6 MMOL/L (3.5-5.1); Thyroid Stimulating Hormone 0.322 uIU/ml (0.358-3.74)
[2022-09-26] MEDS: ALBUTEROL 2.5 MG/3 ML NEB RESP TX SCH ×3 (07:40→18:55)
[2022-09-26] MEDS ORDERED: DIGOXIN 0.125 MG TABLET PO SCH (09:00)
[2022-09-26] MEDS: MAGNESIUM OXIDE 400 MG TABLET PO SCH ×2 (09:53→17:29)
[2022-09-26] MEDS: PANTOPRAZOLE 40 MG TABLET PO SCH (09:53)
[2022-09-26] MEDS: POTASSIUM CHLORIDE 10 MEQ TABLET PO SCH (09:53)
[2022-09-26] MEDS: ASCORBIC ACID 500 MG TABLET PO SCH ×2 (09:53→20:29)
[2022-09-26] MEDS: MULTIVITAMIN (BEROCCA) TABLET PO SCH (09:53)
[2022-09-26] MEDS: CLOPIDOGREL 75 MG TABLET PO SCH (09:53)
[2022-09-26] MEDS: GABAPENTIN 300 MG CAPSULE PO SCH ×3 (09:53→20:31)
[2022-09-26] MEDS: OMEGA 3 ACID ETHYL ESTERS 1 GM CAPSULE PO SCH ×3 (09:53→20:29)
[2022-09-26] MEDS: LETROZOLE 2.5 MG TABLET PO SCH (09:53)
[2022-09-26] MEDS: DOCUSATE SODIUM 100 MG CAPSULE PO SCH ×2 (09:54→20:29)
[2022-09-26] MEDS: CALCIUM (CARBONATE)/VITAMIN D 600 MG-400 UNIT TABLET PO SCH ×2 (09:54→20:33)
[2022-09-26] MEDS: METOPROLOL TARTRATE 25 MG TABLET PO SCH ×2 (09:54→20:30)
[2022-09-26] MEDS: guaiFENesin/DM ER 600-30 MG TABLET PO SCH ×2 (09:59→20:33)
[2022-09-26] MEDS: DILTIAZEM 30 MG TABLET PO SCH ×3 (12:25→20:29)
[2022-09-26] MEDS ORDERED: MAGNESIUM SULF RIDER 2 GM/50 ML PREMIX IV ONE (15:00)
[2022-09-26] MEDS: SIMVASTATIN 10 MG TABLET PO SCH (20:29)
[2022-09-26] MEDS: MONTELUKAST 10 MG TABLET PO SCH (20:29)
[2022-09-27] MEDS: ALBUTEROL 2.5 MG/3 ML NEB RESP TX SCH ×4 (01:38→20:38)
[2022-09-27] MEDS: DILTIAZEM INJ 100 MG in SODIUM CHLORIDE 0.9% 100 ML IV SCH (03:52)
[2022-09-27] MEDS: LEVOTHYROXINE 50 MCG TABLET PO SCH (06:33)
[2022-09-27 10:09] LABS: Basophils % 0.7 % (0.0-0.8); Eosinophils # 0.1 10*3/uL (0.0-0.87); Eosinophils % 1.6 % (0.00-10.9); Hematocrit 38.1 VOL% (35.7-47.0); Hemoglobin 12.7 GM/DL (12.0-16.0); Immature Granulocytes % 0.5 %; Immature Granulocytes Absolute 0.03 #; Lymphocytes # 0.8 10*3/uL (1.4-4.0); Lymphocytes % 12.9 % (21.3-54.2); Mean Corpuscular HGB Conc 33.3 GM/DL (32-36); Mean Corpuscular Volume 95.7 FL (87-102); Mean Platelet Volume 10.3 FL (9.6-12.0); Monocytes # 0.5 10*3/uL (0.11-0.8); Monocytes % 8.2 % (1.7-12.7); Neutrophils % 76.1 % (38.7-73.9); Platelet Count 191 T/CUMM (130-400); Red Blood Count 3.98 MC/CUMM (3.8-5.5); Red Cell Distribution Width 14.4 % (9.3-17.3); White Blood Count 6.11 T/CUMM (4-12)
[2022-09-27 10:21] LABS: Calcium 8.2 MG/DL (8.5-10.1); Potassium 3.3 MMOL/L (3.5-5.1)
[2022-09-27] MEDS: POTASSIUM CHLORIDE 10 MEQ TABLET PO SCH (11:00)
[2022-09-27] MEDS: CLOPIDOGREL 75 MG TABLET PO SCH (11:00)
[2022-09-27] MEDS: DILTIAZEM 30 MG TABLET PO SCH ×4 (11:01→21:13)
[2022-09-27] MEDS: guaiFENesin/DM ER 600-30 MG TABLET PO SCH ×2 (11:01→21:13)
[2022-09-27] MEDS: PANTOPRAZOLE 40 MG TABLET PO SCH (11:02)
[2022-09-27] MEDS: MULTIVITAMIN (BEROCCA) TABLET PO SCH (11:02)
[2022-09-27] MEDS: OMEGA 3 ACID ETHYL ESTERS 1 GM CAPSULE PO SCH ×3 (11:03→21:12)
[2022-09-27] MEDS: DOCUSATE SODIUM 100 MG CAPSULE PO SCH ×2 (11:03→21:12)
[2022-09-27] MEDS: LETROZOLE 2.5 MG TABLET PO SCH (11:04)
[2022-09-27] MEDS: MAGNESIUM OXIDE 400 MG TABLET PO SCH ×2 (11:04→17:16)
[2022-09-27] MEDS: CALCIUM (CARBONATE)/VITAMIN D 600 MG-400 UNIT TABLET PO SCH ×2 (11:05→21:12)
[2022-09-27] MEDS: GABAPENTIN 300 MG CAPSULE PO SCH ×3 (11:05→21:12)
[2022-09-27] MEDS: ASCORBIC ACID 500 MG TABLET PO SCH ×2 (11:06→21:13)
[2022-09-27] MEDS: METOPROLOL TARTRATE 25 MG TABLET PO SCH ×2 (11:07→21:12)
[2022-09-27] MEDS ORDERED: DIGOXIN 0.125 MG TABLET PO SCH (13:00)
[2022-09-27] MEDS: POTASSIUM BICARB EFFERVESCENT 20 MEQ TAB.EFF PO SCH ×2 (15:12→21:13)
[2022-09-27] MEDS: SIMVASTATIN 10 MG TABLET PO SCH (21:12)
[2022-09-27] MEDS: MONTELUKAST 10 MG TABLET PO SCH (21:13)
[2022-09-28] MEDS: ALBUTEROL 2.5 MG/3 ML NEB RESP TX SCH ×4 (01:21→19:06)
[2022-09-28] MEDS: DILTIAZEM INJ 100 MG in SODIUM CHLORIDE 0.9% 100 ML IV SCH (01:51)
[2022-09-28 04:50] LABS: Basophils % 0.7 % (0.0-0.8); Eosinophils # 0.2 10*3/uL (0.0-0.87); Eosinophils % 2.9 % (0.00-10.9); Hemoglobin 11.8 GM/DL (12.0-16.0); Immature Granulocytes % 0.2 %; Immature Granulocytes Absolute 0.01 #; Lymphocytes # 1.4 10*3/uL (1.4-4.0); Lymphocytes % 25.6 % (21.3-54.2); Mean Corpuscular HGB Conc 32.8 GM/DL (32-36); Mean Corpuscular Volume 97.6 FL (87-102); Mean Platelet Volume 10.1 FL (9.6-12.0); Monocytes # 0.8 10*3/uL (0.11-0.8); Monocytes % 13.7 % (1.7-12.7); Neutrophils % 56.9 % (38.7-73.9); Platelet Count 193 T/CUMM (130-400); Red Blood Count 3.69 MC/CUMM (3.8-5.5); Red Cell Distribution Width 14.6 % (9.3-17.3); White Blood Count 5.47 T/CUMM (4-12)
[2022-09-28 05:12] LABS: Calcium 8.4 MG/DL (8.5-10.1); Potassium 3.8 MMOL/L (3.5-5.1)
[2022-09-28] MEDS: LEVOTHYROXINE 50 MCG TABLET PO SCH (06:39)
[2022-09-28] MEDS: POTASSIUM BICARB EFFERVESCENT 20 MEQ TAB.EFF PO SCH (06:39)
[2022-09-28] MEDS ORDERED: DIGOXIN 0.5 MG/2 ML AMP IV ONE (08:37)
[2022-09-28] MEDS: LETROZOLE 2.5 MG TABLET PO SCH (08:46)
[2022-09-28] MEDS: METOPROLOL TARTRATE 25 MG TABLET PO SCH ×2 (08:46→20:47)
[2022-09-28] MEDS: DILTIAZEM 30 MG TABLET PO SCH ×4 (08:46→20:48)
[2022-09-28] MEDS: OMEGA 3 ACID ETHYL ESTERS 1 GM CAPSULE PO SCH ×3 (08:46→20:47)
[2022-09-28] MEDS: ASCORBIC ACID 500 MG TABLET PO SCH ×2 (08:46→20:48)
[2022-09-28] MEDS: PANTOPRAZOLE 40 MG TABLET PO SCH (08:46)
[2022-09-28] MEDS: POTASSIUM CHLORIDE 10 MEQ TABLET PO SCH (08:46)
[2022-09-28] MEDS: MAGNESIUM OXIDE 400 MG TABLET PO SCH ×2 (08:46→16:48)
[2022-09-28] MEDS: CLOPIDOGREL 75 MG TABLET PO SCH (08:47)
[2022-09-28] MEDS: CALCIUM (CARBONATE)/VITAMIN D 600 MG-400 UNIT TABLET PO SCH ×2 (08:47→20:47)
[2022-09-28] MEDS: GABAPENTIN 300 MG CAPSULE PO SCH ×3 (08:47→20:47)
[2022-09-28] MEDS: guaiFENesin/DM ER 600-30 MG TABLET PO SCH ×2 (08:47→20:48)
[2022-09-28] MEDS: DOCUSATE SODIUM 100 MG CAPSULE PO SCH ×2 (08:47→20:47)
[2022-09-28] MEDS: MULTIVITAMIN (BEROCCA) TABLET PO SCH (08:47)
[2022-09-28 09:58] LABS: Folate > 24.00 NG/ML (5.38-24.0); Vitamin B12 1196 PG/ML (211-911)
[2022-09-28] MEDS ORDERED: DIGOXIN 0.25 MG TABLET PO SCH (13:00)
[2022-09-28] MEDS: MONTELUKAST 10 MG TABLET PO SCH (20:47)
[2022-09-28] MEDS: SIMVASTATIN 10 MG TABLET PO SCH (20:47)
[2022-09-29] MEDS: ALBUTEROL 2.5 MG/3 ML NEB RESP TX SCH ×4 (00:23→21:12)
[2022-09-29] MEDS: DILTIAZEM INJ 100 MG in SODIUM CHLORIDE 0.9% 100 ML IV SCH ×2 (01:01→10:58)
[2022-09-29 05:00] LABS: Basophils # 0.1 10*3/uL (0.0-0.2); Basophils % 1.2 % (0.0-0.8); Eosinophils # 0.2 10*3/uL (0.0-0.87); Eosinophils % 4.4 % (0.00-10.9); Hematocrit 38.4 VOL% (35.7-47.0); Hemoglobin 12.6 GM/DL (12.0-16.0); Immature Granulocytes % 0.2 %; Immature Granulocytes Absolute 0.01 #; Lymphocytes # 1.5 10*3/uL (1.4-4.0); Mean Corpuscular HGB Conc 32.8 GM/DL (32-36); Mean Corpuscular Volume 96.7 FL (87-102); Mean Platelet Volume 9.7 FL (9.6-12.0); Monocytes # 0.6 10*3/uL (0.11-0.8); Monocytes % 11.8 % (1.7-12.7); Neutrophils % 52.4 % (38.7-73.9); Platelet Count 216 T/CUMM (130-400); Red Blood Count 3.97 MC/CUMM (3.8-5.5); Red Cell Distribution Width 14.4 % (9.3-17.3)
[2022-09-29 05:22] LABS: Calcium 8.8 MG/DL (8.5-10.1); Potassium 3.8 MMOL/L (3.5-5.1)
[2022-09-29 05:32] LABS: Albumin 2.8 G/DL (3.4-5.0); Bilirubin,Total 0.6 MG/DL (0.20-1.00); Calcium 8.4 MG/DL (8.5-10.1); Osmolality,Calculated 282.8 MOS/KG (273-304); Potassium 4.1 MMOL/L (3.5-5.1); Total Protein 5.6 G/DL (6.4-8.2)
[2022-09-29] MEDS: LEVOTHYROXINE 75 MCG TABLET PO SCH (05:37)
[2022-09-29] MEDS: METOPROLOL TARTRATE 25 MG TABLET PO SCH ×2 (09:20→20:45)
[2022-09-29] MEDS: DILTIAZEM 30 MG TABLET PO SCH ×4 (09:20→20:44)
[2022-09-29] MEDS: guaiFENesin/DM ER 600-30 MG TABLET PO SCH ×2 (11:33→20:44)
[2022-09-29] MEDS ORDERED: ROCURONIUM 50 MG/5 ML VIAL IV ONE (11:33)
[2022-09-29] MEDS ORDERED: LIDOCAINE 2% 5 ML VIAL ONE (11:33)
[2022-09-29] MEDS: GABAPENTIN 300 MG CAPSULE PO SCH ×3 (11:33→20:44)
[2022-09-29] MEDS: OMEGA 3 ACID ETHYL ESTERS 1 GM CAPSULE PO SCH ×3 (11:33→20:45)
[2022-09-29] MEDS: ASCORBIC ACID 500 MG TABLET PO SCH ×2 (11:33→20:44)
[2022-09-29] MEDS ORDERED: propofoL 200 MG/20 ML VIAL IV ONE (11:33)
[2022-09-29] MEDS: PANTOPRAZOLE 40 MG TABLET PO SCH (11:33)
[2022-09-29] MEDS: CALCIUM (CARBONATE)/VITAMIN D 600 MG-400 UNIT TABLET PO SCH ×2 (11:34→20:45)
[2022-09-29] MEDS: POTASSIUM CHLORIDE 10 MEQ TABLET PO SCH (11:34)
[2022-09-29] MEDS: MAGNESIUM OXIDE 400 MG TABLET PO SCH ×2 (11:34→16:04)
[2022-09-29] MEDS: MULTIVITAMIN (BEROCCA) TABLET PO SCH (11:34)
[2022-09-29] MEDS: FERROUS SULFATE 325 MG TABLET PO SCH (11:34)
[2022-09-29] MEDS ORDERED: fentaNYL 100 MCG/2 ML VIAL ONE (11:34)
[2022-09-29] MEDS: LETROZOLE 2.5 MG TABLET PO SCH (11:34)
[2022-09-29] MEDS: DOCUSATE SODIUM 100 MG CAPSULE PO SCH ×2 (11:34→20:45)
[2022-09-29] MEDS ORDERED: PHENYLEPHRINE DRIP 0 MG/0 ML PREMIX IV ONE (11:39)
[2022-09-29] MEDS ORDERED: LIDOCAINE 1%/EPI INJ 20 ML VIAL ONE (11:42)
[2022-09-29] MEDS ORDERED: TISSUE ADHESIVE 1 EACH APPLICATOR TOP ONE (11:42)
[2022-09-29] MEDS ORDERED: BUPIVACAINE MPF 0.25% 10 ML VIAL ONE (11:42)
[2022-09-29] MEDS ORDERED: LACTATED RINGERS 1,000 ML IV SCH (12:00)
[2022-09-29] MEDS ORDERED: INDOCYANINE GREEN 25 MG VIAL IV ONE (12:00)
[2022-09-29] MEDS ORDERED: ETOMIDATE 40 MG/20 ML VIAL IV ONE (12:12)
[2022-09-29] MEDS ORDERED: ESMOLOL 100 MG/10 ML VIAL IV ONE (12:32)
[2022-09-29] MEDS ORDERED: GLYCOPYRROLATE 0.4 MG/2 ML VIAL ONE (12:44)
[2022-09-29] MEDS ORDERED: NEOSTIGMINE 10 MG/10 ML VIAL ONE (12:44)
[2022-09-29] MEDS ORDERED: ONDANSETRON 4 MG/2 ML VIAL ONE (12:45)
[2022-09-29] MEDS ORDERED: SEVOFLURANE 1 UNIT/15 MINUTE INH ONE (12:58)
[2022-09-29] MEDS ORDERED: DIGOXIN 0.5 MG/2 ML AMP IV ONE (13:19)
[2022-09-29] MEDS ORDERED: METOPROLOL TARTRATE 5 MG/5 ML VIAL IV ONE (13:28)
[2022-09-29] MEDS ORDERED: HYDROmorphone 1 MG/1 ML SYRINGE ONE (13:37)
[2022-09-29] MEDS ORDERED: HYDROmorphone 1 MG/1 ML SYRINGE IV PRN ×2 (13:55→13:58)
[2022-09-29] MEDS ORDERED: ONDANSETRON 4 MG/2 ML VIAL IV PRN (13:55)
[2022-09-29] MEDS: DIGOXIN 0.25 MG TABLET PO SCH (14:21)
[2022-09-29 16:01] LABS: Basophils # 0.1 10*3/uL (0.0-0.2); Basophils % 0.7 % (0.0-0.8); Eosinophils # 0.1 10*3/uL (0.0-0.87); Eosinophils % 1.9 % (0.00-10.9); Hematocrit 39.4 VOL% (35.7-47.0); Hemoglobin 13.2 GM/DL (12.0-16.0); Immature Granulocytes % 0.1 %; Immature Granulocytes Absolute 0.01 #; Lymphocytes % 15.2 % (21.3-54.2); Mean Corpuscular HGB Conc 33.5 GM/DL (32-36); Mean Platelet Volume 9.5 FL (9.6-12.0); Monocytes # 0.6 10*3/uL (0.11-0.8); Monocytes % 8.4 % (1.7-12.7); Neutrophils % 73.7 % (38.7-73.9); Platelet Count 221 T/CUMM (130-400); Red Blood Count 4.06 MC/CUMM (3.8-5.5); Red Cell Distribution Width 14.4 % (9.3-17.3); White Blood Count 6.82 T/CUMM (4-12)
[2022-09-29 16:20] LABS: Calcium 8.6 MG/DL (8.5-10.1); Osmolality,Calculated 278.3 MOS/KG (273-304); Potassium 3.6 MMOL/L (3.5-5.1)
[2022-09-29] MEDS: MONTELUKAST 10 MG TABLET PO SCH (20:45)
[2022-09-29] MEDS: SIMVASTATIN 10 MG TABLET PO SCH (20:45)
[2022-09-30] MEDS: ALBUTEROL 2.5 MG/3 ML NEB RESP TX SCH ×2 (02:49→07:10)
[2022-09-30] MEDS: LEVOTHYROXINE 75 MCG TABLET PO SCH (05:10)
[2022-09-30 05:23] LABS: Basophils # 0.1 10*3/uL (0.0-0.2); Basophils % 0.8 % (0.0-0.8); Eosinophils # 0.2 10*3/uL (0.0-0.87); Eosinophils % 2.6 % (0.00-10.9); Hematocrit 38.4 VOL% (35.7-47.0); Hemoglobin 12.9 GM/DL (12.0-16.0); Immature Granulocytes % 0.2 %; Immature Granulocytes Absolute 0.01 #; Lymphocytes # 0.9 10*3/uL (1.4-4.0); Lymphocytes % 15.5 % (21.3-54.2); Mean Corpuscular HGB Conc 33.6 GM/DL (32-36); Mean Platelet Volume 9.4 FL (9.6-12.0); Monocytes # 0.6 10*3/uL (0.11-0.8); Monocytes % 10.4 % (1.7-12.7); Neutrophils % 70.5 % (38.7-73.9); Platelet Count 221 T/CUMM (130-400); White Blood Count 6.07 T/CUMM (4-12)
[2022-09-30 05:53] LABS: Calcium 8.3 MG/DL (8.5-10.1); Osmolality,Calculated 273.5 MOS/KG (273-304); Potassium 3.3 MMOL/L (3.5-5.1)
[2022-09-30] MEDS ORDERED: POTASSIUM CHLORIDE 20 MEQ TABLET PO ONE (09:15)
[2022-09-30] MEDS: CALCIUM (CARBONATE)/VITAMIN D 600 MG-400 UNIT TABLET PO SCH (09:44)
[2022-09-30] MEDS: MAGNESIUM OXIDE 400 MG TABLET PO SCH (09:44)
[2022-09-30] MEDS: ASCORBIC ACID 500 MG TABLET PO SCH (09:45)
[2022-09-30] MEDS: GABAPENTIN 300 MG CAPSULE PO SCH (09:45)
[2022-09-30] MEDS: guaiFENesin/DM ER 600-30 MG TABLET PO SCH (09:45)
[2022-09-30] MEDS: DOCUSATE SODIUM 100 MG CAPSULE PO SCH (09:45)
[2022-09-30] MEDS: MULTIVITAMIN (BEROCCA) TABLET PO SCH (09:45)
[2022-09-30] MEDS: FERROUS SULFATE 325 MG TABLET PO SCH (09:45)
[2022-09-30] MEDS: POTASSIUM CHLORIDE 10 MEQ TABLET PO SCH (09:45)
[2022-09-30] MEDS: PANTOPRAZOLE 40 MG TABLET PO SCH (09:45)
[2022-09-30] MEDS: OMEGA 3 ACID ETHYL ESTERS 1 GM CAPSULE PO SCH (09:45)
[2022-09-30] MEDS: LETROZOLE 2.5 MG TABLET PO SCH (09:46)
[2022-09-30] MEDS: METOPROLOL TARTRATE 25 MG TABLET PO SCH (09:46)
[2022-09-30] MEDS: DILTIAZEM 30 MG TABLET PO SCH ×2 (09:46→14:17)
[2022-09-30 11:54] VITALS: BP 126/78
[2022-09-30] MEDS: DIGOXIN 0.25 MG TABLET PO SCH (14:17)
[2022-09-30] MEDS: DILTIAZEM INJ 100 MG in SODIUM CHLORIDE 0.9% 100 ML IV SCH (14:26)
== END 2022-09-30 14:28 | disposition home or self-care (01) | DRG 988 ==
LOC: N.ED 23:09 → N.EDINP 09-26 03:54 → SUATTDRO 09-26 03:54 → N.TELES 09-26 06:13
PROVIDERS: ADMIT Internal Medicine; ATTEND Internal Medicine